=== PATIENT | female | born 1975 | race Caucasian/White ===

== ENCOUNTER 2018-04-17 14:30 | Emergency (ER) | payer MEDICAID ==
[~2018-04-17] VITALS: Ht 157.5 cm; Wt 86.3 kg
[2018-04-17 14:35] VITALS: Ht 157.5 cm; Wt 86.3 kg
[2018-04-17] MEDS ORDERED: ASPIRIN 325 MG TAB PO STA (14:45)
[2018-04-17] MEDS ORDERED: morphine 4 MG/ML VIAL IV STA (14:59)
[2018-04-17] MEDS ORDERED: SOD CHLORIDE 0.9% 1,000 ML IV STA (14:59)
[2018-04-17] MEDS ORDERED: ACETAMINOPHEN 500 MG TAB PO STA (14:59)
[2018-04-17] MEDS ORDERED: ONDANSETRON 4 MG INJ IV STA ×3 (14:59→21:13)
[2018-04-17] MEDS ORDERED: KETOROLAC 30 MG INJ IV STA (14:59)
[2018-04-17] MEDS ORDERED: NITROGLYCERIN (SL) 0.4 MG TAB SL PRN (15:00)
--- NOTE | 2018-04-17 16:35 | ERD ---
ER Documentation Chief Complaint Chief Complaint pt is bib self with c/o chest pain , headache and back pain x 1 wk HPI This is a 42-year-old female with no past medical history. The patient indicates for the past week she has been having generalized myalgias, nonproductive cough, bandlike headache, chest pain. She states the chest pain is a dull ache that is exacerbated whenever she moves her upper extremities. She denies any chest pressure however that radiates to the neck arm back or jaw. She indicates that she had no recent sick contacts. She said no recent travel or hospitalizations. She states this is not the worst headache of her life. She also indicates that for the past 48 hours she is been having tenderness in the right lower quadrant. She states the pain is 8 out of 10 in intensity. It does not radiate to the back. She said no frequency urgency or dysuria. ROS All systems reviewed and are negative except as per history of present illness. Allergies Allergies: Coded Allergies: No Known Allergy (Unverified , 04/17/18) PMhx/Soc History of Surgery: No Anesthesia Reaction: No Hx Neurological Disorder: No Hx Respiratory Disorders: No Hx Cardiac Disorders: No Hx Psychiatric Problems: No Hx Alcohol Use: No Hx Substance Use: No Hx Tobacco Use: No Smoking Status: Never smoker Physical Exam Vitals Vital Signs Date Temp Pulse Resp B/P (MAP) Pulse Ox O2 O2 Flow FiO2 Time Delivery Rate 04/17/18 99.9 75 14 111/71 95 Room Air 20:37 (84) 04/17/18 99.9 87 22 101/62 95 Room Air 19:43 (75) 04/17/18 99.9 96 22 137/78 95 Room Air 18:41 (97) 04/17/18 99.9 94 17 119/74 95 Room Air 17:29 (89) 04/17/18 103 18 132/65 98 Room Air 16:17 (87) 04/17/18 98.3 125 20 180/84 100 14:35 (116) Physical Exam Constitutional:Well-developed. Well-nourished. HEENT:Normocephalic. Atraumatic.Pupils were equal round reactive to light. Dry mucous membranes.No tonsillar exudates. Endoscopy exam shows sharp optic disks and venous pulsations are present Neck: No nuchal rigidity. No lymphadenopathy. No posterior cervical spine tenderness or step-offs. Respiratory: Not using accessory muscles of respiration.Lungs were clear to auscultation bilaterally. No rhonchi. No rales. No wheezing. Cardiovascular: Regular rate regular rhythm.No murmurs. No rubs were appreciated.S1, S2 normal. Distal pulses are palpable 2+ bilaterally. GI: Abdomen was soft. Right lower quadrant tenderness with negative psoas sign and obturator sign.. Non Distended. No pulsatile abdominal masses or bruits. No rebound. No guarding. Bowel sounds were present and normal. Muscle skeletal: Full range of motion of both the upper and lower extremities bilaterally.Normal muscle tone.No assymetrical calf tenderness or swelling. Skin: No petechia, no purpura. No lesions on the palms or the soles of the feet. No maculopapular rash. NEURO: Patient was alert, awake, orientated x3.No facial droop. Gait observed and normal with no ataxia.Speech had regular rate and rhythm. No focal neurological deficits. Result Diagram: 04/17/18 1501 04/17/18 1501 Results 24 hrs Laboratory Tests Test 04/17/18 14:55 04/17/18 14:58 04/17/18 15:01 04/17/18 15:03 Urine Color YELLOW Urine Clarity SLIGHTLY CLOUDY Urine pH 5.0 Urine Specific 1.021 [place] Urine Ketones NEGATIVE mg/dL Urine Nitrite NEGATIVE mg/dL Urine Bilirubin NEGATIVE mg/dL Urine NEGATIVE mg/dL Urobilinogen Urine Leukocyte NEGATIVE Hermilo/ul Esterase Urine Microscopic 1 /HPF RBC Urine Microscopic 1 /HPF WBC Urine Hemoglobin 2+ mg/dL Urine Glucose NEGATIVE mg/dL Urine Total NEGATIVE mg/dl Protein POC Beta HCG, NEGATIVE Qualitative White Blood Count 8.1 10^3/ul Red Blood Count 4.36 10^6/ul Hemoglobin 12.1 g/dl Hematocrit 36.8 % Mean Corpuscular 84.4 fl Volume Mean Corpuscular 27.8 pg Hemoglobin Mean Corpuscular 32.9 g/dl Hemoglobin Concen t Red Cell 12.8 % Distribution Width Platelet Count 341 10^3/UL Mean Platelet 10.2 fl Volume Immature 0.400 % Granulocytes % Neutrophils % 79.9 % Lymphocytes % 9.4 % Monocytes % 8.6 % Eosinophils % 1.2 % Basophils % 0.5 % Nucleated Red 0.0 /100WBC Blood Cells % Immature 0.030 10^3/ul Granulocytes # Neutrophils # 6.4 10^3/ul Lymphocytes # 0.8 10^3/ul Monocytes # 0.7 10^3/ul Eosinophils # 0.1 10^3/ul Basophils # 0.0 10^3/ul Nucleated Red 0.0 10^3/ul Blood Cells # Prothrombin Time 13.5 Sec Prothrombin Time 1.1 Ratio INR International 1.02 Normalized Ratio Activated 30.7 Sec Partial Thrombopl ast Time Sodium Level 139 mmol/L Potassium Level 4.2 mmol/L Chloride Level 101 mmol/L Carbon Dioxide 20 mmol/L Level Anion Gap 18 Blood Urea 7 mg/dl Nitrogen Creatinine 0.58 mg/dl Est Glomerular > 60 mL/min Filtrat Rate mL/min Glucose Level 110 mg/dl Calcium Level 9.2 mg/dl Total Bilirubin 0.1 mg/dl Direct Bilirubin 0.00 mg/dl Indirect 0.1 mg/dl Bilirubin Aspartate Amino 23 IU/L Transf (AST/SGOT) Alanine 23 IU/L Aminotransferase (ALT/SGPT) Alkaline 90 IU/L Phosphatase Creatine Kinase 53 IU/L Creatine Kinase 0.4 Index Creatinine Kinase < 0.22 ng/ml MB (Mass) Troponin I < 0.012 ng/ml B-Type 60 PG/ML Natriuretic Peptide Total Protein 8.1 g/dl Albumin 4.4 g/dl Globulin 3.70 g/dl Albumin/Globulin 1.18 Ratio POC Venous 1.5 mmol/L Lactate Current Medications Medications Dose Sig/Kelley Start Time Status Last (Trade) Ordered Route PRN Stop Time Admin Dose Reason Admin Aspirin 325 mg ONCE STAT 04/17/18 DC 04/17/18 (Aspirin) PO 14:45 16:05 04/17/18 14:47 1 tab Q5M UP TO 3 04/17/18 04/17/18 Nitroglycerin DOSES PRN 15:00 16:14 SL .CHEST (Nitroglyceri PAIN n (Sl Tab) 0.4 Mg) Sodium 1,000 ml @ Q1H STAT 04/17/18 DC 04/17/18 Chloride 1,000 mls/hr IV 14:59 16:05 04/17/18 15:58 Morphine 4 mg ONCE STAT 04/17/18 DC 04/17/18 Sulfate IV 14:59 16:05 (morphine) 04/17/18 15:01 Ondansetron 4 mg ONCE STAT 04/17/18 DC 04/17/18 HCl (Zofran IV 14:59 16:03 Inj) 04/17/18 15:01 Ketorolac 30 mg ONCE STAT 04/17/18 DC 04/17/18 Tromethamine IV 14:59 16:05 (Toradol) 04/17/18 15:01 1,000 mg ONCE STAT 04/17/18 DC 04/17/18 Acetaminophen PO 14:59 16:04 (Tylenol 04/17/18 15:01 Tab) IV Flush 10 ml STK-MED 04/17/18 DC (NS 10 ml) ONCE .ROUTE 16:41 04/17/18 16:42 Sodium 100 ml @ ud STK-MED 04/17/18 DC Chloride ONCE .ROUTE 16:41 04/17/18 16:42 Iohexol 150 ml STK-MED 04/17/18 DC (Omnipaque ONCE .ROUTE 16:42 300mg/ ml) 04/17/18 16:43 1 mg ONCE STAT 04/17/18 DC 04/17/18 Hydromorphone IV 20:14 20:23 HCl 04/17/18 20:16 (Dilaudid) Ondansetron 4 mg ONCE STAT 04/17/18 DC 04/17/18 HCl (Zofran IV 20:14 20:23 Inj) 04/17/18 20:16 Procedures/MDM This patient presented to the emergency department with abdominal pain and was seen and evaluated by myself. My differential diagnosis included but was not limited to abdominal aortic aneurysm, appendicitis, pancreatitis, perforated peptic ulcer, perforated viscus, Boerhaaves syndrome or visceral pain such as diverticulitis, DKA, esophagitis, hepatitis or bowel obstruction. The patient was placed on a electronic device monitor, continuous pulse oximetry, and IV access was established by nursing staff. The patient given intravenous morphine Toradol and Zofran. 12 Lead EKG tracing ordered and reviewed by myself showed: Sinus tachycardia 129 bpm and no arrhythmia. TN interval normal. QRS duration normal. No ST segment elevation No ST segment depression. No changes consistent with acute ischemia. The patient is now complaining of abdominal pain in the right lower quadrant. I obtain a CT scan of the abdomen which indicated the followin. There is a 1.5 cm low density area in the right adnexa that could represent a right ovarian cyst. There is a small amount of free fluid in the posterior right pelvis. 2. A normal appendix is identified. 3. Hepatic steatosis. 4. Status post cholecystectomy. I also obtained an ultrasound of the pelvis. There is no evidence of ovarian torsion. There was no evidence of atypical myocardial ischemia. The patient's pain was reproducible and I did feel result of costochondritis. No risk factors for pulmonary embolism. The patient did show signs of clinical dehydration which could be contributing to her tachycardia. She received IV fluids. The patient was not septic his lactic acid was within normal limits. The patient was afebrile in the emergency department. Influenza swab was negative. Chest radiograph reviewed by myself the radiologist indicate the following: Hypoinflated lungs with atelectasis in the bilateral lower lobes. The patient had no evidence of urinary tract infection or pyelonephritis. I did obtain a CT scan of the abdomen due to the location of the patient's abdominal pain and physical exam findings. There is no evidence of appendicitis or small bowel obstruction. Observation Note: Time: 4 hours Family Hx: No Hypertension Evaluation: Multiple exams showed improving symptoms and no evidence of worsening of her symptoms. Patient no physical exam findings to suggest meningitis. I did feel this was more likely a flulike illness. The patient states she felt comfortable being discharged home. The patient was discharged home in fair condition. They were instructed to retur n to the emergency department at any time if there was any worsening of their condition. The patient stated they would follow up with their PCP in the next 24-48 hours to initiate a suitable medication regimen under the care of their PCP as well as to allow their PCP to monitor any drug reactions. The patient was discharged home with prescriptions after they gave informed consent to the new medication. They were also fully informed by myself on the adverse effects and adverse drug interactions in order to provide adequate safeguards to prevent possible adverse reactions to medications. Departure Diagnosis: Primary Impression: Costochondritis Additional Impressions: Flu-like symptoms Abdominal pain Abdominal location: right lower quadrant Qualified Codes: R10.31 - Right lower quadrant pain Condition: Fair KARLENE DEE MD Apr 17, 2018 16:35
[2018-04-17] MEDS ORDERED: SOD CHLORIDE 0.9% 100 ML ONE (16:41)
[2018-04-17] MEDS ORDERED: IOHEXOL 300MG/ML 150 ML BTL ONE (16:42)
[2018-04-17] MEDS ORDERED: HYDROmorphONE 1 MG/ML SYG IV STA (20:14)
[2018-04-17] MEDS ORDERED: IBUP800T48 PO (21:02)
[2018-04-17 23:19] VITALS: BP 103/70; PULSE 68; RESP 14
[2018-04-17] MEDS ORDERED: ONDANSETRON (ODT) 4 MG TAB ODT STA (23:43)
== END 2018-04-17 23:47 | disposition home or self-care (01) ==
LOC: E/R 14:30
DX: M94.0 Chondrocostal junction syndrome [Tietze] (principal); R10.31 Right lower quadrant pain; R10.2 Pelvic and perineal pain
CPT/HCPCS: 36415; 71045; 74177; 76830; 76856; 80053; 81001; 81025; 82550; 82553; 83605; 83880; 84484; 85025; 85610; 85730; 87400; 93005; 96374; 96375; 96376; J1170; J1885; J2270; J2405; J7030; Q9967; Z7502; Z7610